=== PATIENT | female | born 1955 | race Caucasian/White ===

== ENCOUNTER → 2024-11-06 08:56 | Outpatient (REF) | payer MEDICARE, SELFPAY | LOC: HWRAD 08:56 | PROVIDERS: ATTENDING PHYSICIAN Nurse Practitioner Family | DX: R07.9 Chest pain, unspecified (principal) | CPT/HCPCS: 71046 ==

== ENCOUNTER 2025-01-18 13:37 | Emergency (ER) | payer MEDICARE, SELFPAY ==
[2025-01-18 13:46] VITALS: BP 164/99
[2025-01-18 15:40] VITALS: BMI 31.0
--- NOTE | 2025-01-18 15:44 | ED.GENMED ---
History of Present Illness
General
Chief Complaint: Fall
Source: patient
Time Seen by Provider: 01/18/25 15:32
History of Present Illness
History of Present Illness:
69-year-old female with no significant past medical history presenting to the emergency department for evaluation after she slipped and fell in the shower causing her to fall backwards striking her buttock on the base of the shower and her head on
the toilet that is just outside of the shower. Patient states that while there is no loss of consciousness she does have a mild headache and a noted contusion/hematoma to the right occiput. She is also noting some associated pain to the right
palmar surface of her hand. She denies any use of anticoagulants, vomiting, visual disturbances, focal weakness or numbness or any other extremity related concerns. Patient was ambulatory following the fall.
Past History
Past History
ED Past Medical History: None
ED Past Surgical History: None
Social History
Tobacco: Non-smoker
Alcohol: None
Drug: None
Personal:
Living: with family
Employment: Employed
Review of Systems
Review of Systems
All Other Systems: ROS reviewed and negative except as documented in HPI and ROS
Phy Exam
Physical Exam
Physical Exam:
GENERAL: Alert , in no apparent distress
HEAD: Contusion to the right occiput
EYE: conjunctiva clear
NECK: Supple, no midline tenderness
ENT: o/p clr, mmm.
CARDIAC: Regular rate and rhythm
LUNGS: Clear breath sounds bilaterally, no acute respiratory distress, no wheezes/rales/rhonchi, no chest wall tenderness
ABDOMEN: Soft, nontender, nondistended
NEUROLOGICAL: Alert and oriented
SKIN: Warm and dry, skin intact.
MUSCULOSKELETAL: well perfused. full range of motion of all extremities, no focal tenderness
PSYCH: Normal and appropriate interaction.
Scores
Heart Failure Risk
Heart Failure Risk Score: Not Applicable
Heart Score for Chest Pain Patients
STEMI patient?: Not applicable
Withdrawal Assessment of Alcohol
Withdrawal Assessment Completed?: Not applicable
Course
Orders/Labs/Results
Orders:
Orders
01/18/25 13:[address] [CT Head W/o Iv Contrast] Urgent
Comment:
Reason For Exam: head strike
01/18/25 13:49
Sacrum/Coccyx 2 View CR [CR Sacrum/coccyx Min 2 View] Stat
Comment:
Reason For Exam: pain
01/18/25 13:50
Hand, Right 3 View [CR Hand - Right Min 3 Views] Stat
Comment:
Reason For Exam: pain
Vital Signs
Initial and Last Documented VS:
Initial Vital Signs
Temp Pulse Resp BP Pulse Ox
98.5 F 94 16 164/99 99
01/18/25 13:46 01/18/25 13:46 01/18/25 13:46 01/18/25 13:46 01/18/25 13:46
Last Documented Vital Signs
Temp Pulse Resp BP Pulse Ox
98.5 F 94 16 164/99 99
01/18/25 13:46 01/18/25 13:46 01/18/25 13:46 01/18/25 13:46 01/18/25 13:46
MDM/Problems Addressed
Differential Diagnosis Includes:
Accidental trip and fall, scalp contusion, concussion, intracranial bleeding, sacral fracture versus contusion, right hand contusion/sprain/fracture
MDM/Problems Addressed:
69-year-old female presenting to the ER for evaluation after an accidental slip and fall in the shower resulting in head and back injury. Patient hemodynamically stable and in no acute distress. CT of the head, x-ray of the sacrum and right hand
were ordered. No acute pathologies found. Suspect contusions as most likely diagnosis. NSAIDs/Tylenol as needed for pain, can keep ice over the affected areas. Otherwise stable for discharge home. Aware of return precautions.
*Radiology
Radiology exam reviewed: radiology read reviewed
*Pulse Oximetry
Patient hypoxic: no
*Critical Care Note
Total Time (30-74mins, 75-104mins- exclusive of procedures): Not Applicable
ED Attending Note
-
Portions of this chart may have been created with voice recognition software.� Occasional wrong word or��sound alike� substitutions may have occurred due to the inherent limitations of voice recognition software.
Discharge Plan
Departure
Patient Disposition: Home (Routine Discharge)
Date of Disposition: 01/18/25
Time of Disposition: 15:44
Patient with high blood pressure during this ER visit?: Yes
Discharge Problem:
Accidental fall, Contusion of scalp, Low back pain
Instructions: Contusion (DC)
Prescriptions:
No Action
fluoxetine [Prozac] 20 MG capsule
20 mg PO DAILY
Interventions
Interventions:
*Risk Screen - Suicide Last Done: 01/18/25 13:46
*General Assessment Last Done: 01/18/25 15:40
*Neglect/Abuse Screening Last Done: 01/18/25 13:46
*ED COVID-19 Vaccine History Last Done: 01/18/25 15:40
*Nursing Disposition Last Done: 01/18/25 15:55
ED-Musculoskeletal Assessment Last Done: 01/18/25 15:40
ED- Neurological Assessment Last Done: 01/18/25 15:40
ED-Skin Assessment Last Done: 01/18/25 15:40
Discharge Date and Time
Print Language: [place]
== END 2025-01-18 16:08 | disposition home or self-care (01) ==
LOC: EMR 13:37
PROVIDERS: EMERGENCY PHYSICIAN Emergency Medicine; FAMILY PHYSICIAN Nurse Practitioner Family
DX: S00.03XA Contusion of scalp, initial encounter (principal); M54.50 Low back pain, unspecified; W18.2XXA Fall in (into) shower or empty bathtub, initial encounter
CPT/HCPCS: 99284; 70450; 72220; 73130